=== PATIENT | male | born 1975 | race Caucasian/White ===

== ENCOUNTER 2020-02-10 15:32 | Inpatient (IN) | payer OTHER ==
[~2020-02-10] VITALS: Ht 167.6 cm; Wt 129.4 kg
[2020-02-10] VITALS (7 sets, daily range): BP systolic 148–201; BP diastolic 88–123
--- NOTE | 2020-02-10 15:10 | NUR ---
A 44, admitted to , under the services of SHAHRIAR Vaughn DO with a diagnosis of SUSPECTED COVID19 INFECTION. Chief complaint is SOB, COUGH, FEVER, EXPOSED TO COVID. [facility] Monitor applied. Initial assessment completed. Vital signs taken and recorded. SHAHRIAR VAUGHN DO notified of admission to the unit. Orders received. See assessment for past medical history, medications and allergies. Patient and/or family oriented to unit. [facility] IV FROM AMBULANCE TO [facility] WITH IVF INFUSING DO ROBERTS
[2020-02-10 15:50] LABS: ABG BASE EXCESS 0.4 mmol/L (-2.0-2.0); ARTERIAL BLOOD GAS PH 7.434 (7.35-7.45)
[2020-02-10] MEDS ORDERED: ACETAMINOPHEN325 M2 PO (16:38)
[2020-02-10] MEDS ORDERED: PARLODEL2.5 M1 PO (16:39)
[2020-02-10] MEDS ORDERED: LIPITOR10 MG PO (16:39)
[2020-02-10] MEDS ORDERED: LEVOTHYROXINE75 MCG PO (16:40)
[2020-02-10] MEDS ORDERED: PRINIVIL20 M1 PO (16:40)
[2020-02-10 16:41] LABS: BASO % 0.3 % (0.0-1.0); HEMATOCRIT 44.7 % (42.0-52.0); LYMPH # 1.4 10*3/uL (1.3-4.4); LYMPH % 20.4 % (27.0-41.0); MEAN CELL VOLUME 84.3 fl (80.0-94.0); MEAN CORPUSCULAR HGB 28.1 pg (27.0-31.0); MEAN CORPUSCULAR HGB CONC 33.3 g/dl (33.0-37.0); MEAN PLATELET VOLUME 11.3 fl (9.6-12.3); MONO # 0.4 10*3/uL (0.1-1.0); MONO % 6.4 % (3.0-9.0); NEUT # 4.8 10*3/uL (2.3-7.9); NEUT % 72.6 % (47.0-73.0); PLATELET COUNT AUTOMATED 215 10*3/uL (130-400); RED CELL DISTRI WIDTH 15.7 % (0-14.5); WHITE BLOOD COUNT 6.6 10*3/uL (4.8-10.8)
[2020-02-10] MEDS ORDERED: FLOMAX0.4 MG PO (16:41)
[2020-02-10] MEDS ORDERED: GLUCOPHAGE500 M1 PO (16:41)
[2020-02-10] MEDS ORDERED: VITAMIN D325 MCG PO (16:43)
[2020-02-10] MEDS ORDERED: DEPO TESTOS200 MG/ML IM (16:44)
[2020-02-10 16:54] LABS: ALBUMIN 3.5 gm/dl (3.1-4.5); ALKALINE PHOSPHATASE 60 U/L (45-117); BUN 11 mg/dl (7-24); CHLORIDE 101 mmol/L (98-107); CREATININE 1.38 mg/dL (0.70-1.30); POTASSIUM 3.8 mmol/L (3.5-5.1); SGOT/AST 68 IU/L (3-35); SGPT/ALT 72 U/L (12-78); SODIUM 134 mmol/L (136-145); TOTAL PROTEIN 8.3 gm/dL (6.4-8.2)
[2020-02-10 17:21] LABS: BILIRUBIN NEGATIVE (NEGATIVE); BLOOD 2+ (NEGATIVE); CLARITY SL CLOUDY (CLEAR); COLOR YELLOW (YELLOW); GLUCOSE NEGATIVE (NEGATIVE); KETONE NEGATIVE (NEGATIVE); SPECIFIC GRAVITY 1.015 (1.005-1.030)
[2020-02-10 17:22] LABS: LEUKO ESTERASE NEGATIVE (NEGATIVE); NITRITE NEGATIVE (NEGATIVE); PH 6.5 (5.0-9.0)
[2020-02-10 17:30] LABS: BACTERIA 2+
[2020-02-10 18:41] LABS: TROPONIN I 0.02 ng/ml (<0.045)
--- NOTE | 2020-02-10 22:04 | NUR ---
DR. BALL STATED DISPITE PATIENT BEING COVID NEGATIVE AT THIS TIME, TO STOP FLUIDS ON THE PATIENT
--- NOTE | 2020-02-10 22:48 | NUR ---
PRN TYLENOL GIVEN FOR TEMP OF 101.8. CALL LIGHT WITHIN REACH, VITAL SIGNS REMAIN STABLE. PATIENT MAINTAINED ON 4LNC SATTING 94%.
--- NOTE | 2020-02-10 23:30 | NUR ---
PRN TYLENOL EFFECTIVE, PTS TEMP 99.9
--- NOTE | 2020-02-11 01:43 | NUR ---
PATIENTS PULSE OX DROPPED AND MAINTAINING 89-90%. PATIENTS BREATHING 30 RESPIRATIONS PER MINUTE. PATIENTS TEMPERATURE BACK UP TO 100.7. DR. NIELSON MADE AWAREA. PATIENTS OXYGEN INCREASED TO 5L
[2020-02-11 01:45] VITALS: BP 136/64
--- NOTE | 2020-02-11 02:17 | NUR ---
PRN TYLENOL GIVEN FOR TEMPERATURE OF 100.7
--- NOTE | 2020-02-11 03:23 | NUR ---
PATIENTS TEMP 100.6. WILL RECHECK
--- NOTE | 2020-02-11 04:02 | NUR ---
PATIENT SLEEPING. NO DISTRESS NOTED.
[2020-02-11 06:49] LABS: BASO % 0.1 % (0.0-1.0); LYMPH # 1.4 10*3/uL (1.3-4.4); LYMPH % 20.1 % (27.0-41.0); MEAN CELL VOLUME 83.3 fl (80.0-94.0); MEAN CORPUSCULAR HGB 27.6 pg (27.0-31.0); MEAN CORPUSCULAR HGB CONC 33.1 g/dl (33.0-37.0); MEAN PLATELET VOLUME 10.4 fl (9.6-12.3); MONO # 0.3 10*3/uL (0.1-1.0); MONO % 4.8 % (3.0-9.0); NEUT # 5.1 10*3/uL (2.3-7.9); NEUT % 74.7 % (47.0-73.0); PLATELET COUNT AUTOMATED 220 10*3/uL (130-400); RED BLOOD COUNT 5.04 10*6/uL (4.50-5.90); RED CELL DISTRI WIDTH 15.8 % (0-14.5); WHITE BLOOD COUNT 6.8 10*3/uL (4.8-10.8)
[2020-02-11 06:57] LABS: INTERNATIONAL NORM RATIO 1.1 (2.0-3.5)
[2020-02-11 07:26] LABS: ALBUMIN 2.9 gm/dl (3.1-4.5); ALKALINE PHOSPHATASE 52 U/L (45-117); BUN 10 mg/dl (7-24); CHLORIDE 104 mmol/L (98-107); CREATININE 1.22 mg/dL (0.70-1.30); PHOSPHOROUS 2.6 mg/dL (2.5-4.9); POTASSIUM 3.8 mmol/L (3.5-5.1); SGOT/AST 53 IU/L (3-35); SGPT/ALT 63 U/L (12-78); SODIUM 135 mmol/L (136-145); TOTAL PROTEIN 7.5 gm/dL (6.4-8.2)
[2020-02-11 08:00] VITALS: BP 131/64; BP 143/86
[2020-02-11 10:30] VITALS: BP 143/86
--- NOTE | 2020-02-11 10:30 | NUR ---
PT RESTING IN BED. PT ANXIOUS. TEMP 102.1 ORALLY. HR-89 ON MONITOR. BP 143/86 MAP IS 102. RESP-27-32. LUNGS DIMINISHED T/O. BSG-110. PULSE OX 88-89%5L. CALL LIGHT IN REA4CH.
--- NOTE | 2020-02-11 10:30 | NUR ---
PT RESTING IN BED. ANXIOUS. C/O SHORT OF BREATH, RESP-27-32. HR-89, PULSE OX 88-89% 5L. TEMP 102.1. INCREASED OXYGEN, PULSE OX-90%. BSG-110, SEE EMAR.
--- NOTE | 2020-02-11 10:38 | NUR ---
DR. BALL IN TO SEEP T. INCREASE OXYGEN TO HIGHFLOW AT 12LITERS. 95%. DO BLOOD GAS IN 1/2 HOUR. CALL LIGHT IN REACH.
--- NOTE | 2020-02-11 10:45 | NUR ---
PT MEDICATED WITH TYLENOL PO PER PRN ORDER, SEE EMAR. FOR TEMP.
--- NOTE | 2020-02-11 10:53 | NUR ---
Nutritional Support Services Note: Appetite is good for meals, Pt is eating 100% of regular diet as ordered. No other Nutrition intervention needed at this time. Will follow if needed. Kimberley Gomez Rdn Ld
--- NOTE | 2020-02-11 11:30 | NUR ---
TEMP 101.2 ORALLY. 96%12 LITERS. RESP-34, 125/86. NO C/O AT THIS TIME. ANXIOUS
--- NOTE | 2020-02-11 11:35 | NUR ---
Arterial blood gases drawn from right radial after 2 attempt. The procedure was explained to the patient. The Keny's test was performed with satisfactory results. The artery was palpated. [id number]-jxbavtij-pfyyirb prep to site. The specimen was obtained and sent to the lab on ice. Digital pressure applied x 5 minutes. Pressure dressing applied. No bleeding or hematoma. Pulses equal bilaterally. VIDHI UMANZOR R
[2020-02-11 12:00] VITALS: BP 125/86
[2020-02-11 12:12] LABS: ABG BASE EXCESS 1.3 mmol/L (-2.0-2.0); ARTERIAL BLOOD GAS PH 7.443 (7.35-7.45)
[2020-02-11 16:00] VITALS: BP 123/84
[2020-02-11 19:35] VITALS: BP 148/81
--- NOTE | 2020-02-11 19:48 | NUR ---
PT TEMP 102.2 ORALLY. MEDICATED WITH TYLENOL TWO PO PER PRN ORDER, SEE EMAR. SITTING UP IN BED. TOLERATING IV MEDICATIONS. CALL LIGHT IN REACH.
[2020-02-12] VITALS: BP 114/70
[2020-02-12 06:46] LABS: HEMATOCRIT 37.4 % (42.0-52.0); MEAN CELL VOLUME 85.2 fl (80.0-94.0); MEAN CORPUSCULAR HGB 28.7 pg (27.0-31.0); MEAN CORPUSCULAR HGB CONC 33.7 g/dl (33.0-37.0); MEAN PLATELET VOLUME 10.6 fl (9.6-12.3); PLATELET COUNT AUTOMATED 241 10*3/uL (130-400); RED BLOOD COUNT 4.39 10*6/uL (4.50-5.90); RED CELL DISTRI WIDTH 15.9 % (0-14.5); WHITE BLOOD COUNT 7.6 10*3/uL (4.8-10.8)
[2020-02-12 07:00] LABS: ALBUMIN 2.7 gm/dl (3.1-4.5); ALKALINE PHOSPHATASE 53 U/L (45-117); BUN 11 mg/dl (7-24); CHLORIDE 106 mmol/L (98-107); CREATININE 1.42 mg/dL (0.70-1.30); PHOSPHOROUS 2.8 mg/dL (2.5-4.9); SGOT/AST 47 IU/L (3-35); SGPT/ALT 63 U/L (12-78); SODIUM 138 mmol/L (136-145)
[2020-02-12 08:00] VITALS: BP 147/89
[2020-02-12 08:30] LABS: ATYPICAL LYMPHS 2 % (0-0); BASOPHILS 1 % (0-1); TOTAL CELLS COUNTED 100 #CELLS
[2020-02-12 08:31] LABS: PLATELET SUFFICIENCY NORMAL (NORMAL)
[2020-02-12 12:00] VITALS: BP 138/80
[2020-02-12 16:00] VITALS: BP 124/80
--- NOTE | 2020-02-12 18:00 | NUR ---
ORDER OBTAINED FOR MULTILUMEN CATHETER. NEELAM MCADAMS ON FLOOR TO INSERT. 2MG OF VERSED GIVEN PRIOR TO INSERTION. PT TOLERATED WELL. MLC PLACED TO RIGHT NECK, DRESSING DRY/INTACT. BROWN PORT NOT FLUSHING PER NURSE ANESTHESIST. WILL NOTIFY ONCOMING NURSE. CHEST XRAY ORDERED FOR PLACEMENT.
[2020-02-12 20:00] VITALS: BP 129/84
--- NOTE | 2020-02-12 21:00 | NUR ---
PATIENT IS AAOX3 WITH EASY AND REGULAR RESPERS ON 8L HIGH FLOW NC. ASSESSMENT IS COMPLETE WITH NO C/O OR S/S OF DISTRESS NOTED AT THIS TIME. BED IS LOW, LOCKED, AND CALL LIGHT IS WITHIN REACH. BEDSIDE GLUCOSE 176 PATIENT REFUSED COVERAGE. WILL CONTINUE TO MONITOR, SEE SHIFT ASSESSMENT.
[2020-02-13] VITALS: BP 120/36
[2020-02-13 06:14] LABS: HEMATOCRIT 36.6 % (42.0-52.0); MEAN CELL VOLUME 85.5 fl (80.0-94.0); MEAN CORPUSCULAR HGB 28.5 pg (27.0-31.0); MEAN CORPUSCULAR HGB CONC 33.3 g/dl (33.0-37.0); MEAN PLATELET VOLUME 10.5 fl (9.6-12.3); PLATELET COUNT AUTOMATED 271 10*3/uL (130-400); RED BLOOD COUNT 4.28 10*6/uL (4.50-5.90); RED CELL DISTRI WIDTH 15.9 % (0-14.5); WHITE BLOOD COUNT 7.8 10*3/uL (4.8-10.8)
[2020-02-13 06:19] LABS: ALBUMIN 2.5 gm/dl (3.1-4.5); ALKALINE PHOSPHATASE 57 U/L (45-117); BUN 12 mg/dl (7-24); CHLORIDE 106 mmol/L (98-107); CREATININE 1.27 mg/dL (0.70-1.30); POTASSIUM 3.7 mmol/L (3.5-5.1); SGOT/AST 45 IU/L (3-35); SGPT/ALT 64 U/L (12-78); SODIUM 140 mmol/L (136-145); TOTAL PROTEIN 6.8 gm/dL (6.4-8.2)
--- NOTE | 2020-02-13 07:17 | NUR ---
DR. TREVIÑO CONTACTED AT THIS TIME INREGARDS TO BLOOD CULTURES FROM 02/09 SHOWING MRSA, AND NASAL DRYNESS. SEE NEW ORDERS.
[2020-02-13 07:19] LABS: ATYPICAL LYMPHS 2 % (0-0); BASOPHILS 1 % (0-1); TOTAL CELLS COUNTED 100 #CELLS
[2020-02-13 07:20] LABS: POLYCHROMASIA SLIGHT; TARGET CELLS FEW
[2020-02-13 07:21] LABS: PLATELET SUFFICIENCY NORMAL (NORMAL)
[2020-02-13 08:00] VITALS: BP 116/77
--- NOTE | 2020-02-13 08:15 | NUR ---
IN TO SEE PT. PT IS A&0X3. RESPS EASY AND REGULAR, 8L HIGH FLOW NC IN PLACE. PT HAS NO COMPLAINTS AT THIS TIME. ASSESSMENT COMPLETE. CALL LIGHT WITHIN REACH. WILL CONTINUE TO MONITOR.
[2020-02-13 12:00] VITALS: BP 114/77
--- NOTE | 2020-02-13 12:00 | NUR ---
IN TO SEE PT. DISUCSSED PTS CONDITION, REVIEWED LABS AND DISCUSSED VITALS. SEE NEW ORDERS.
--- NOTE | 2020-02-13 12:15 | NUR ---
24 HR chart check completed.
[2020-02-13 16:00] VITALS: BP 138/84
--- NOTE | 2020-02-13 17:37 | NUR ---
PT RESTING IN BED. NO COMPLAINTS AT THIS TIME. VSS. CALL LIGHT WITHIN REACH. WILL CONTINUE TO MONITOR.
[2020-02-13 20:00] VITALS: BP 147/94
[2020-02-14] VITALS: BP 141/88
[2020-02-14 06:33] LABS: HEMATOCRIT 37.5 % (42.0-52.0); MEAN CELL VOLUME 85.6 fl (80.0-94.0); MEAN CORPUSCULAR HGB 28.3 pg (27.0-31.0); MEAN CORPUSCULAR HGB CONC 33.1 g/dl (33.0-37.0); MEAN PLATELET VOLUME 10.2 fl (9.6-12.3); PLATELET COUNT AUTOMATED 318 10*3/uL (130-400); RED BLOOD COUNT 4.38 10*6/uL (4.50-5.90); RED CELL DISTRI WIDTH 15.7 % (0-14.5); WHITE BLOOD COUNT 7.3 10*3/uL (4.8-10.8)
[2020-02-14 06:51] LABS: ALBUMIN 2.4 gm/dl (3.1-4.5); ALKALINE PHOSPHATASE 60 U/L (45-117); BUN 10 mg/dl (7-24); CHLORIDE 105 mmol/L (98-107); CREATININE 1.21 mg/dL (0.70-1.30); POTASSIUM 3.9 mmol/L (3.5-5.1); SGOT/AST 43 IU/L (3-35); SGPT/ALT 78 U/L (12-78); SODIUM 139 mmol/L (136-145); TOTAL PROTEIN 7.1 gm/dL (6.4-8.2); TRIGLYCERIDES 104 mg/dl (<150)
[2020-02-14 07:36] LABS: ATYPICAL LYMPHS 1 % (0-0); PLATELET SUFFICIENCY NORMAL (NORMAL); TOTAL CELLS COUNTED 100 #CELLS
[2020-02-14 08:00] VITALS: BP 145/88
--- NOTE | 2020-02-14 08:00 | NUR ---
PT RESTING IN BED WITH NO COMPLAINTS AT THIS TIME. 7L HIGH FLOW NC IN PLACE POX 94%. RESPS EASY AND REGULAR. VSS. ASSESSMENT COMPLETE. CALL LIGHT WITHIN REACH. WILL CONTINUE TO MONITOR.
--- NOTE | 2020-02-14 10:00 | NUR ---
IN. PTS LABS AND CONDITION DISCUSSED. SEE NEW ORDERS.
--- NOTE | 2020-02-14 11:30 | NUR ---
IN. PER ONLY ONE SET OF BLOOD CULTURES NEEDED.
[2020-02-14 12:00] VITALS: BP 150/93
--- NOTE | 2020-02-14 12:24 | NUR ---
PTS BLOOD CULTUTRES COLLECTED AND SENT TO THE LAB. PT TOLERATED WELL.
[2020-02-14 16:30] VITALS: BP 146/87
[2020-02-14 20:00] VITALS: BP 159/68
--- NOTE | 2020-02-14 20:00 | NUR ---
PATIENT IS AAOX3 RESTING IN BED WITH EASY AND REGULAR RESPERS ON 6L O2 VIA HIGH FLOW NASAL CANNULA. ASSESSMENT IS COMPLETE WITH NO S/S OF DISTRESS NOTED AT THIS TIME. PATIENT C/O CONSTIPATION. BED IS LOW, LOCKED, AND CALL LIGHT IS WITHIN REACH. WILL CONTINUE TO MONITOR, SEE SHIFT ASSESSMENT.
--- NOTE | 2020-02-14 21:19 | NUR ---
2200 MEDICATIONS GIVEN WITH PRN DULCOLAX FOR CONSTIPATION. PATIENT TOLERATED WELL.
[2020-02-15] VITALS: BP 140/60
[2020-02-15 04:00] VITALS: BP 144/58
--- NOTE | 2020-02-15 04:41 | NUR ---
CHART CHECK COMPLETE.
--- NOTE | 2020-02-15 05:51 | NUR ---
0400 AND 0600 MEDICATIONS GIVEN, BEDSIDE GLUCOSE 101, AM LABS DRAWN FROM MLC. 400ML EMPTIED FROM URINAL AND LARGE BM FROM BEDSIDE COMMODE. CALL LIGHT IS WITHIN REACH.
[2020-02-15 06:08] LABS: ALBUMIN 2.5 gm/dl (3.1-4.5); BASO % 0.5 % (0.0-1.0); BUN 8 mg/dl (7-24); CHLORIDE 103 mmol/L (98-107); CREATININE 1.13 mg/dL (0.70-1.30); EOS # 0.1 10*3/uL (0.0-0.4); EOS % 0.8 % (1.0-4.0); HEMATOCRIT 38.4 % (42.0-52.0); LYMPH # 1.8 10*3/uL (1.3-4.4); LYMPH % 21.3 % (27.0-41.0); MEAN CELL VOLUME 86.3 fl (80.0-94.0); MEAN CORPUSCULAR HGB 28.3 pg (27.0-31.0); MEAN CORPUSCULAR HGB CONC 32.8 g/dl (33.0-37.0); MEAN PLATELET VOLUME 10.3 fl (9.6-12.3); MONO # 0.6 10*3/uL (0.1-1.0); MONO % 7.4 % (3.0-9.0); NEUT # 5.8 10*3/uL (2.3-7.9); NEUT % 69.2 % (47.0-73.0); PLATELET COUNT AUTOMATED 363 10*3/uL (130-400); POTASSIUM 3.9 mmol/L (3.5-5.1); RED BLOOD COUNT 4.45 10*6/uL (4.50-5.90); RED CELL DISTRI WIDTH 15.8 % (0-14.5); SGOT/AST 50 IU/L (3-35); SGPT/ALT 92 U/L (12-78); SODIUM 136 mmol/L (136-145); TOTAL PROTEIN 7.3 gm/dL (6.4-8.2); TRIGLYCERIDES 103 mg/dl (<150); WHITE BLOOD COUNT 8.4 10*3/uL (4.8-10.8)
[2020-02-15 06:09] LABS: ALKALINE PHOSPHATASE 66 U/L (45-117)
[2020-02-15 08:00] VITALS: BP 144/94
--- NOTE | 2020-02-15 08:00 | NUR ---
PT RESTING IN BED WITH NO COMPLAINTS AT THIS TIME. 5L HIGH FLOW NC IN PLACE POX 94%. RESPS EASY AND REGULAR. ASSESSMENT COMPLETE. CALL LIGHT WITHIN REACH. WILL CONTINUE TO MONITOR.
[2020-02-15 08:52] LABS: ABG BASE EXCESS 1.8 mmol/L (-2.0-2.0); ARTERIAL BLOOD GAS PH 7.447 (7.35-7.45)
[2020-02-15 12:00] VITALS: BP 142/94
--- NOTE | 2020-02-15 13:00 | NUR ---
PT SITTING UP IN BED EATING LUNCH WITH NO COMPLAINTS AT THIS TIME. RESPS EASY AND REGULAR. CALL LIGHT WITHIN REACH. WILL CONTINUE TO MONITOR.
[2020-02-15 15:48] VITALS: BP 148/88
--- NOTE | 2020-02-15 18:00 | NUR ---
PT RESTING IN BED. NO COMPLAINTS AT THIS TIME. 4L NC IN PLACE, POX 95%. RESPS EASY AND REGULAR. CALL LIGHT IN REACH. WILL CONTINUE TO MONITOR.
--- NOTE | 2020-02-15 19:45 | NUR ---
PATIENT RESTING IN BED. NO COMPLAINTS. RESPIRATIONS EASY AND UNLABORED, NO COMPLAINTS OF SHORTNESS OF BREATH AT REST. 4L HFNC, PULSE OX 94%. DENIES PAIN AT THIS TIME. PATIENT STATES HE IS "STARTING TO FEEL MUCH BETTER". AFEBRILE 97.5 ORALLY. WILL CONTINUE TO MONITOR.
[2020-02-15 20:00] VITALS: BP 142/94; BP 142/98
--- NOTE | 2020-02-15 22:45 | NUR ---
24 HOUR CHART CHECK COMPLETE.
[2020-02-16] VITALS: BP 140/88
[2020-02-16 06:07] LABS: BASO % 0.5 % (0.0-1.0); EOS # 0.1 10*3/uL (0.0-0.4); EOS % 1.2 % (1.0-4.0); HEMATOCRIT 38.1 % (42.0-52.0); LYMPH # 1.5 10*3/uL (1.3-4.4); LYMPH % 17.6 % (27.0-41.0); MEAN CELL VOLUME 85.4 fl (80.0-94.0); MEAN CORPUSCULAR HGB CONC 32.8 g/dl (33.0-37.0); MEAN PLATELET VOLUME 9.9 fl (9.6-12.3); MONO # 0.7 10*3/uL (0.1-1.0); MONO % 7.8 % (3.0-9.0); NEUT # 6.1 10*3/uL (2.3-7.9); NEUT % 71.5 % (47.0-73.0); PLATELET COUNT AUTOMATED 411 10*3/uL (130-400); RED BLOOD COUNT 4.46 10*6/uL (4.50-5.90); RED CELL DISTRI WIDTH 15.7 % (0-14.5); WHITE BLOOD COUNT 8.5 10*3/uL (4.8-10.8)
[2020-02-16 06:31] LABS: ALBUMIN 2.5 gm/dl (3.1-4.5); ALKALINE PHOSPHATASE 73 U/L (45-117); BUN 7 mg/dl (7-24); CHLORIDE 101 mmol/L (98-107); CREATININE 1.21 mg/dL (0.70-1.30); PHOSPHOROUS 2.9 mg/dL (2.5-4.9); POTASSIUM 4.1 mmol/L (3.5-5.1); SGOT/AST 54 IU/L (3-35); SGPT/ALT 105 U/L (12-78); SODIUM 135 mmol/L (136-145)
[2020-02-16 08:00] VITALS: BP 158/86
--- NOTE | 2020-02-16 08:00 | NUR ---
PT RESTING IN BED. RESP-EASY AND REGULAR. OXYGEN IN USE. NO SOB NOTED. NO C/O AT THIS TIME. CALL LIGHT IN REACH. SEE SHIFT ASSESSMENT.
--- NOTE | 2020-02-16 11:30 | NUR ---
PT RESTING IN BED. BSG-145, SEE EMAR. NO C/O AT THIS TIME. PULSE OX 93% RA. CALL LIGHT IN REACH.
[2020-02-16 12:00] VITALS: BP 148/80
[2020-02-16 16:00] VITALS: BP 136/90
[2020-02-16 20:00] VITALS: BP 155/89
[2020-02-17] VITALS: BP 181/98
[2020-02-17 06:27] LABS: ALBUMIN 2.6 gm/dl (3.1-4.5); ALKALINE PHOSPHATASE 76 U/L (45-117); BUN 7 mg/dl (7-24); CHLORIDE 100 mmol/L (98-107); CREATININE 1.17 mg/dL (0.70-1.30); POTASSIUM 3.9 mmol/L (3.5-5.1); SGOT/AST 40 IU/L (3-35); SGPT/ALT 104 U/L (12-78); SODIUM 137 mmol/L (136-145); TOTAL PROTEIN 7.2 gm/dL (6.4-8.2); TRIGLYCERIDES 109 mg/dl (<150)
[2020-02-17 06:35] LABS: BASO % 0.5 % (0.0-1.0); EOS # 0.1 10*3/uL (0.0-0.4); EOS % 1.4 % (1.0-4.0); HEMATOCRIT 37.8 % (42.0-52.0); LYMPH # 1.5 10*3/uL (1.3-4.4); LYMPH % 18.3 % (27.0-41.0); MEAN CELL VOLUME 85.5 fl (80.0-94.0); MEAN CORPUSCULAR HGB 28.5 pg (27.0-31.0); MEAN CORPUSCULAR HGB CONC 33.3 g/dl (33.0-37.0); MONO # 0.6 10*3/uL (0.1-1.0); MONO % 7.1 % (3.0-9.0); NEUT # 5.9 10*3/uL (2.3-7.9); NEUT % 70.2 % (47.0-73.0); PLATELET COUNT AUTOMATED 449 10*3/uL (130-400); RED BLOOD COUNT 4.42 10*6/uL (4.50-5.90); RED CELL DISTRI WIDTH 15.7 % (0-14.5); WHITE BLOOD COUNT 8.4 10*3/uL (4.8-10.8)
[2020-02-17 08:00] VITALS: BP 154/87
--- NOTE | 2020-02-17 08:15 | NUR ---
PATIENT AWAKE, ALERT, ORIENTED X3. DENIES ANY PAIN. PATIENT STATES HE FEELS A LOT BETTER. ROOM AIR, PRODUCTIVE COUGH NOTED FOR LG AMOUNT OF THICK WHITE SPUTUM. LUNGS DIMINISHED T/O. ABD SOFT & NONTENDER. NO EDEMA NOTED. DRESSING DRY/INTACT TO RIGHT IJ MLC. DENIES NEEDS AT THIS TIME. CALL LIGHT WITHIN REACH.
[2020-02-17] MEDS ORDERED: VANCO 1.751.75 GM/25 IV (10:13)
[2020-02-17 12:00] VITALS: BP 160/76
[2020-02-17] MEDS ORDERED: LOPRESSOR25 MG PO (13:27)
[2020-02-17] MEDS ORDERED: VENT7GM INH (13:27)
[2020-02-17] MEDS ORDERED: REYATAZ300 MG PO (13:27)
[2020-02-17] MEDS ORDERED: RITONAVIR100 MG PO (13:27)
[2020-02-17 16:00] VITALS: BP 142/88
--- NOTE | 2020-02-17 16:30 | NUR ---
CALL RECEIVED FROM [facility]; STATES THEY ARE UNABLE TO TAKE PATIENT BACK TONIGHT DUE TO THE NIGHTSHIFT PHYSICIAN REFUSING TO TAKE PATIENT WITH PICC LINE. SHE STATES SHE WILL CALL AND NOTIFY HER AND ATTEMPT TO MAKE ARRANGEMENTS TO TRANSFER TO [facility] IF POSSIBLE.
--- NOTE | 2020-02-17 19:40 | NUR ---
24 HR CHART CHECK COMPLETE
--- NOTE | 2020-02-17 20:15 | NUR ---
IN TO SEE PT AT THIS TIME. HE IS SITTING UP IN BED. RESPS ARE EASY AND NONLABORED. PT REMAINS ON RA WITH PULSE OX OF 95%. HE IS C/O COUGH WITH WHITE/BLOOD TINGED SPUTUM. BED IS LOW, CALL LIGHT WITHIN REACH. WILL CONTINUE TO MONITOR.
--- NOTE | 2020-02-17 23:31 | NUR ---
PT IN BED ASLEEP AT THIS TIME. NO S/S OF DISTRESS NOTED. WILL CONTINUE TO MONITOR.
[2020-02-18] VITALS: BP 163/84
[2020-02-18 06:27] LABS: PHOSPHOROUS 3.2 mg/dL (2.5-4.9)
[2020-02-18 08:00] VITALS: BP 182/104
--- NOTE | 2020-02-18 11:49 | NUR ---
PT RESTING IN BED, NO DISTRESS NOTED. REPEAT BP IMPROVED FROM THIS AM; 162/88. AWARE OF HIGH BP AND ORDER OBTAINED TO INCREASE METOPROLOL. CALL LIGHT IN REACH AT ALL TIMES.
[2020-02-18 12:00] VITALS: BP 162/92; BP 168/104
[2020-02-18 16:00] VITALS: BP 158/88
[2020-02-19] VITALS: BP 169/95
[2020-02-19 06:41] LABS: HEMATOCRIT 38.7 % (42.0-52.0); MEAN CORPUSCULAR HGB 28.2 pg (27.0-31.0); MEAN CORPUSCULAR HGB CONC 32.8 g/dl (33.0-37.0); MEAN PLATELET VOLUME 9.6 fl (9.6-12.3); NUCLEATED RED BLOOD CELL 0.2 % (0.0-0.0); PLATELET COUNT AUTOMATED 476 10*3/uL (130-400); RED CELL DISTRI WIDTH 15.6 % (0-14.5); WHITE BLOOD COUNT 9.8 10*3/uL (4.8-10.8)
[2020-02-19 07:00] LABS: ALBUMIN 2.7 gm/dl (3.1-4.5); ALKALINE PHOSPHATASE 88 U/L (45-117); BUN 9 mg/dl (7-24); CHLORIDE 102 mmol/L (98-107); CREATININE 1.27 mg/dL (0.70-1.30); SGOT/AST 37 IU/L (3-35); SGPT/ALT 99 U/L (12-78); SODIUM 135 mmol/L (136-145); TOTAL PROTEIN 7.4 gm/dL (6.4-8.2); TRIGLYCERIDES 131 mg/dl (<150)
--- NOTE | 2020-02-19 07:30 | NUR ---
PT RESTING IN CHAIR. VOICES NO CONCERNS AT THIS TIME. RESPS EASY AND NON LABORED. NO S/S OF DISTRESS. ON ROOM AIR. WHITE BOARD UPDATED. DR'S AWARE OF PTS BP. METOPROLOL WAS INCREASED TO 50MG PO BID ON 02/18/20. WILL MONITOR. CALL LIGHT WITHIN REACH
[2020-02-19 07:34] LABS: TOTAL CELLS COUNTED 100 #CELLS
[2020-02-19 07:35] LABS: PLATELET SUFFICIENCY HIGH (NORMAL); POLYCHROMASIA SLIGHT
[2020-02-19 08:00] VITALS: BP 162/89
--- NOTE | 2020-02-19 11:49 | NUR ---
PT C/O 5/10 ACHING HEADACHE. MEDICATED PER ORDER. WILL MONITOR FOR RELIEF. VOICES NO OTHER CONERNS AT THIS TIME .RESP EASY AND NON LABORED. NO S/S OF DISTRESS. CALL LIGHT WITHIN REACH.
[2020-02-19 12:00] VITALS: BP 128/101; BP 128/90
--- NOTE | 2020-02-19 13:00 | NUR ---
TYLENOL EFFECTIVE PER PT
[2020-02-19 16:00] VITALS: BP 158/92
--- NOTE | 2020-02-19 18:24 | NUR ---
PT RESTING IN CHAIR EATING DINNER AT THIS TIME. RESPS EASY AND NON LABORED. NO S/S OF DISTRESS NOTED. VSS. VOICES NO CONCERNS. CALL LIGHT WITHIN REACH.
[2020-02-19 20:00] VITALS: BP 124/78
[2020-02-20] VITALS: BP 142/74
[2020-02-20 06:33] LABS: MEAN CELL VOLUME 86.1 fl (80.0-94.0); MEAN CORPUSCULAR HGB 28.3 pg (27.0-31.0); MEAN CORPUSCULAR HGB CONC 32.8 g/dl (33.0-37.0); MEAN PLATELET VOLUME 9.4 fl (9.6-12.3); NUCLEATED RED BLOOD CELL 0.2 % (0.0-0.0); PLATELET COUNT AUTOMATED 476 10*3/uL (130-400); RED BLOOD COUNT 4.53 10*6/uL (4.50-5.90); RED CELL DISTRI WIDTH 15.8 % (0-14.5); WHITE BLOOD COUNT 9.9 10*3/uL (4.8-10.8)
[2020-02-20 06:47] LABS: ALBUMIN 2.8 gm/dl (3.1-4.5); ALKALINE PHOSPHATASE 86 U/L (45-117); BUN 9 mg/dl (7-24); CHLORIDE 104 mmol/L (98-107); PHOSPHOROUS 3.2 mg/dL (2.5-4.9); POTASSIUM 4.2 mmol/L (3.5-5.1); SGOT/AST 34 IU/L (3-35); SGPT/ALT 95 U/L (12-78); SODIUM 137 mmol/L (136-145); TOTAL PROTEIN 7.5 gm/dL (6.4-8.2); TRIGLYCERIDES 154 mg/dl (<150)
[2020-02-20 07:08] LABS: BASOPHILS 2 % (0-1); PLATELET SUFFICIENCY HIGH (NORMAL); TOTAL CELLS COUNTED 100 #CELLS
--- NOTE | 2020-02-20 07:30 | NUR ---
PT RESTING IN BED. VOICES NO CONCERNS AT THIS TIME. RESPS EASY AND NON LABORED. NO S/S OF DISTRESS NOTED. VSS. ON ROOM AIR. WHITE BOARD UPDATED. CALL LIGHT WITHIN REACH.
[2020-02-20 08:00] VITALS: BP 162/88
[2020-02-20 12:00] VITALS: BP 152/98
[2020-02-20 16:00] VITALS: BP 150/88
--- NOTE | 2020-02-20 16:26 | NUR ---
SPOKE WITH PHARMACY REGARDING [facility]. STATES THAT THEY WILL RETIME MEDICATION FOR TOMORROW BECAUSE THEY DO NOT HAVE ANY AVAILABLE RIGHT NOW.
[2020-02-20 20:00] VITALS: BP 167/88
--- NOTE | 2020-02-20 20:03 | NUR ---
PATIENTS BLOOD SUGAR 158, PT REFUSING 2 UNIT COVERAGE.
--- NOTE | 2020-02-20 20:12 | NUR ---
IN TO ASSESS PATIENT AT THIS TIME. RESPIRATIONS EASY AND UNLABORED. PATIENT ON RA-PULSE OX OF 95%. PATIENT DENIES ANY SHORTNESS OF BREATH, STATES HE DOES HAVE A PRODUCTIVE COUGH OF THICK YELLOW SPUTUM. AFEBRILE AT THIS TIME 98.1. NO COMPLAINTS OTHER THAN PAIN TO HIS LEFT FOREARM WHERE AN IV INFILTRATED. SITE HARD TO TOUCH. K-PAD APPLIED. PATIENT ALSO C/O TENDERNESS TO OLD MULTILUMEN SITE TO RIGHT JUGULAR. SITE SCABBED OVER, NO REDNESS NOTED. ENCOURAGED PATIENT TO REFRAIN FROM PICKING AT THE AREA TO REDUCE RISK FOR INFECTION. WILL MONITOR.
[2020-02-21] VITALS: BP 152/98
--- NOTE | 2020-02-21 00:46 | NUR ---
24 HOUR CHART CHECK COMPLETE.
[2020-02-21 05:40] LABS: ALBUMIN 2.7 gm/dl (3.1-4.5); ALKALINE PHOSPHATASE 89 U/L (45-117); BUN 8 mg/dl (7-24); CHLORIDE 104 mmol/L (98-107); CREATININE 1.22 mg/dL (0.70-1.30); SGOT/AST 37 IU/L (3-35); SGPT/ALT 94 U/L (12-78); SODIUM 136 mmol/L (136-145); TOTAL PROTEIN 7.4 gm/dL (6.4-8.2)
[2020-02-21 08:00] VITALS: BP 148/87
[2020-02-21 12:00] VITALS: BP 140/87
[2020-02-21 16:00] VITALS: BP 140/90; BP 149/93
[2020-02-21 18:29] VITALS: BP 144/81
[2020-02-21 20:00] VITALS: BP 146/90
[2020-02-22] VITALS: BP 142/92
[2020-02-22 06:50] LABS: BASO # 0.1 10*3/uL (0.0-0.1); BASO % 0.8 % (0.0-1.0); EOS # 0.2 10*3/uL (0.0-0.4); HEMATOCRIT 41.5 % (42.0-52.0); LYMPH # 2.6 10*3/uL (1.3-4.4); MEAN CELL VOLUME 86.8 fl (80.0-94.0); MEAN CORPUSCULAR HGB 27.8 pg (27.0-31.0); MONO % 9.5 % (3.0-9.0); NEUT # 6.3 10*3/uL (2.3-7.9); NEUT % 61.2 % (47.0-73.0); PLATELET COUNT AUTOMATED 441 10*3/uL (130-400); RED BLOOD COUNT 4.78 10*6/uL (4.50-5.90); RED CELL DISTRI WIDTH 15.9 % (0-14.5); WHITE BLOOD COUNT 10.3 10*3/uL (4.8-10.8)
[2020-02-22 07:25] LABS: ALBUMIN 2.9 gm/dl (3.1-4.5); ALKALINE PHOSPHATASE 92 U/L (45-117); BUN 9 mg/dl (7-24); CHLORIDE 103 mmol/L (98-107); CREATININE 1.28 mg/dL (0.70-1.30); PHOSPHOROUS 2.9 mg/dL (2.5-4.9); POTASSIUM 3.8 mmol/L (3.5-5.1); SGOT/AST 30 IU/L (3-35); SGPT/ALT 84 U/L (12-78); SODIUM 134 mmol/L (136-145); TOTAL PROTEIN 7.9 gm/dL (6.4-8.2); TRIGLYCERIDES 240 mg/dl (<150)
[2020-02-22 08:00] VITALS: BP 146/90
--- NOTE | 2020-02-22 08:00 | NUR ---
PATIENT AWAKE, ALERT, & ORIENTED X3. DENIES ANY PAIN @ THIS TIME. LUNGS DIMINISHED T/O SCHAFFER. ROOM AIR, POX 94%. RESPIRATIONS EASY/NONLABORED. ABD SOFT & NONTENDER. NO EDEMA. VANCOMYCIN INFUSING PER ORDER. CALL LIGHT IN REACH AT ALL TIMES.
--- NOTE | 2020-02-22 11:00 | NUR ---
CATH-CHRIS ADMINSTERED AND EFFECTIVE FOR PICC LINE TO RIGHT UPPER ARM. + BLOOD RETURN TO BOTH PORTS, FLUSHED WITH EASE.
[2020-02-22 11:57] VITALS: BP 144/88
[2020-02-22 15:50] VITALS: BP 140/80
[2020-02-22 20:00] VITALS: BP 154/98
[2020-02-23] VITALS: BP 140/90
[2020-02-23 06:02] LABS: BUN 8 mg/dl (7-24); CHLORIDE 103 mmol/L (98-107); CREATININE 1.26 mg/dL (0.70-1.30); PHOSPHOROUS 3.3 mg/dL (2.5-4.9); SGOT/AST 30 IU/L (3-35); SGPT/ALT 90 U/L (12-78); SODIUM 137 mmol/L (136-145); TRIGLYCERIDES 244 mg/dl (<150)
[2020-02-23 06:03] LABS: ALKALINE PHOSPHATASE 90 U/L (45-117); TOTAL PROTEIN 7.9 gm/dL (6.4-8.2)
[2020-02-23 06:17] LABS: BASO # 0.1 10*3/uL (0.0-0.1); BASO % 0.8 % (0.0-1.0); EOS # 0.2 10*3/uL (0.0-0.4); HEMATOCRIT 39.9 % (42.0-52.0); LYMPH # 2.1 10*3/uL (1.3-4.4); LYMPH % 23.7 % (27.0-41.0); MEAN CELL VOLUME 87.1 fl (80.0-94.0); MEAN CORPUSCULAR HGB 28.6 pg (27.0-31.0); MEAN CORPUSCULAR HGB CONC 32.8 g/dl (33.0-37.0); MEAN PLATELET VOLUME 9.7 fl (9.6-12.3); MONO # 0.8 10*3/uL (0.1-1.0); MONO % 9.1 % (3.0-9.0); NEUT # 5.8 10*3/uL (2.3-7.9); NEUT % 63.6 % (47.0-73.0); PLATELET COUNT AUTOMATED 474 10*3/uL (130-400); RED BLOOD COUNT 4.58 10*6/uL (4.50-5.90); RED CELL DISTRI WIDTH 15.7 % (0-14.5)
[2020-02-23 08:00] VITALS: BP 146/88
[2020-02-23 12:00] VITALS: BP 152/91
--- NOTE | 2020-02-23 14:15 | NUR ---
RESTING QUIETLY NO COMPLAINTS WATCHING TV. SITTING IN CHAIR. CHEN LANDRYRN
[2020-02-23 15:38] VITALS: BP 150/90
--- NOTE | 2020-02-23 18:33 | NUR ---
PATIENT RESTING, SITTING UP IN CHAIR EATING DINNER AT THIS TIME. NO COMPLAINTS VOICED.
[2020-02-23 20:00] VITALS: BP 149/93
[2020-02-24] VITALS: BP 140/90
--- NOTE | 2020-02-24 05:21 | NUR ---
24 HR chart check completed.
[2020-02-24 06:23] LABS: ALBUMIN 2.8 gm/dl (3.1-4.5); BUN 9 mg/dl (7-24); CHLORIDE 103 mmol/L (98-107); CREATININE 1.22 mg/dL (0.70-1.30); SGOT/AST 35 IU/L (3-35); SGPT/ALT 94 U/L (12-78); SODIUM 137 mmol/L (136-145); TOTAL PROTEIN 7.4 gm/dL (6.4-8.2)
[2020-02-24 06:24] LABS: ALKALINE PHOSPHATASE 93 U/L (45-117)
[2020-02-24 08:00] VITALS: BP 139/81
--- NOTE | 2020-02-24 10:15 | NUR ---
DR BALL ROUNDED AND ORDERS RECIEVED.
--- NOTE | 2020-02-24 10:53 | NUR ---
Spoke to Aby at [facility], x [phone], regarding patient to return tomorrow. [facility] updated information on patient. She requested medication list be sent so that they can have needed medications available. Faxed medication list and last ID note as the dates for his antivirals are on it, .
[2020-02-24 12:00] VITALS: BP 132/85
[2020-02-24 16:00] VITALS: BP 147/93
[2020-02-24 20:00] VITALS: BP 136/88
[2020-02-25] VITALS: BP 148/92
[2020-02-25 06:02] LABS: BASO # 0.1 10*3/uL (0.0-0.1); BASO % 0.9 % (0.0-1.0); EOS # 0.2 10*3/uL (0.0-0.4); EOS % 2.2 % (1.0-4.0); HEMATOCRIT 39.4 % (42.0-52.0); LYMPH # 1.9 10*3/uL (1.3-4.4); LYMPH % 23.8 % (27.0-41.0); MEAN CELL VOLUME 86.8 fl (80.0-94.0); MEAN CORPUSCULAR HGB 28.2 pg (27.0-31.0); MEAN CORPUSCULAR HGB CONC 32.5 g/dl (33.0-37.0); MEAN PLATELET VOLUME 9.6 fl (9.6-12.3); MONO # 0.8 10*3/uL (0.1-1.0); MONO % 9.3 % (3.0-9.0); NEUT # 5.1 10*3/uL (2.3-7.9); NEUT % 63.2 % (47.0-73.0); PLATELET COUNT AUTOMATED 342 10*3/uL (130-400); RED BLOOD COUNT 4.54 10*6/uL (4.50-5.90); RED CELL DISTRI WIDTH 15.8 % (0-14.5); WHITE BLOOD COUNT 8.1 10*3/uL (4.8-10.8)
[2020-02-25 06:28] LABS: BUN 9 mg/dl (7-24); CHLORIDE 101 mmol/L (98-107); CREATININE 1.25 mg/dL (0.70-1.30); POTASSIUM 4.1 mmol/L (3.5-5.1); SODIUM 136 mmol/L (136-145)
[2020-02-25 08:00] VITALS: BP 156/96
--- NOTE | 2020-02-25 11:08 | NUR ---
Spoke to Aby at [facility] regarding patient discharging back today. Discussed with nurse, Lesvia, who has also spoke to [place] [facility] and faxed [facility] [place] to the [facility]. Plan is for patient to discharge between 6:30pm an 7pm tonight.
[2020-02-25 12:00] VITALS: BP 140/62
[2020-02-25 15:44] VITALS: BP 152/64
--- NOTE | 2020-02-25 18:04 | NUR ---
PICC LINE REMOVED - 44 NYDIA - DRESSING APPLIED. SHOWER DONE & PATIENT DRESSED. GUARDS AWARE OF PATIENT READY FOR DISCHARGE.
--- NOTE | 2020-02-25 18:55 | NUR ---
[facility] HERE AND PATIENT TAKEN OUT VIA WHEEL CHAIR..ENVELOPE TAKEN BY GUARDS...ALL INFO FAXED EARLIER TO DR LIND AT [facility] & SHE DID RECEIVE OT
== END 2020-02-25 19:12 | DRG 871 ==
LOC: 5E 15:32
PROVIDERS: Family Medicine; Internal Medicine; Internal Medicine Critical Care Medicine; ADMIT Internal Medicine
PROC: B548ZZA Ultrasonography of Superior Vena Cava, Guidance (ICD-10-PCS; principal; 2020-02-12)
PROC: 02HV33Z Insertion of Infusion Device into Superior Vena Cava, Percutaneous Approach (ICD-10-PCS; principal; 2020-02-12)
DX: A41.02 Sepsis due to Methicillin resistant Staphylococcus aureus (principal); U07.1 COVID-19; J96.01 Acute respiratory failure with hypoxia; J12.89 Other viral pneumonia; E87.1 Hypo-osmolality and hyponatremia; E23.0 Hypopituitarism; Z68.42 Body mass index [BMI] 45.0-49.9, adult; N17.9 Acute kidney failure, unspecified; R65.20 Severe sepsis without septic shock; D49.7 Neoplasm of unspecified behavior of endocrine glands and other parts of nervous system; E03.9 Hypothyroidism, unspecified; I10 Essential (primary) hypertension; E78.5 Hyperlipidemia, unspecified; N40.0 Benign prostatic hyperplasia without lower urinary tract symptoms; D64.9 Anemia, unspecified; E83.41 Hypermagnesemia; B95.62 Methicillin resistant Staphylococcus aureus infection as the cause of diseases classified elsewhere; J45.909 Unspecified asthma, uncomplicated; E11.65 Type 2 diabetes mellitus with hyperglycemia; E66.01 Morbid (severe) obesity due to excess calories; Z90.49 Acquired absence of other specified parts of digestive tract; Z82.0 Family history of epilepsy and other diseases of the nervous system; Z79.84 Long term (current) use of oral hypoglycemic drugs; Z79.899 Other long term (current) drug therapy